=== PATIENT | female | born 1975 | race American Indian/Alaskan Native ===

== ENCOUNTER 2019-12-12 19:28 | Emergency (ER) | payer BC ==
[2019-12-12 21:30] VITALS: BP 155/78; PULSE 119
[2019-12-12 22:45] LABS: ANION GAP 12.4 mEq/L (7-13)
--- NOTE | 2019-12-13 00:02 | EDM.PDOC ---
ED HPI GENERAL MEDICAL PROBLEM - General Chief Complaint: Gastrointestinal Problem Stated Complaint: UPPER BACK AND ADOMENIAL PAIN Time Seen by Provider: 12/12/19 23:50 Source of Information: Reports: Patient History Limitations: Reports: No Limitations - History of Present Illness INITIAL COMMENTS - FREE TEXT/NARRATIVE: This 44 yo female patient reports to the ED with a 1 month history of RUQ abdominal pain. The patient reports she has been seen in the [facility] for these symptoms in the past, but report she has noticed increased stabbing pain into her right back. The patient reports she has not had a normal bowel movement in 4 days. The patient reports she does have a history of a bowel obstruction in the past with similar symptoms. The patient reports she was placed on a muscle relaxer after the clinic visit with no symptom improvement. Duration: Week(s):, Constant Location: Reports: Abdomen (RUQ) Quality: Reports: Ache, Dull Severity: Moderate Improves with: Reports: None Worsens with: Reports: None Context: Reports: Other Associated Symptoms: Reports: No Other Symptoms Right Upper Abdomen Pain Score (Numeric/FACES): 7 - Related Data Allergies Allergy/AdvReac Type Severity Reaction Status Date / Time tomato Allergy Cannot Verified 12/12/19 21:22 Remember Home Meds: Home Meds Cyclobenzaprine HCl 5 mg PO Q6H PRN 12/12/19 [History] Past Medical History - Past Health History Medical/Surgical History: Denies Medical/Surgical History Gastrointestinal History: Reports: Bowel Obstruction 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 Musculoskeletal History: Reports: Fracture Neurological History: Reports: Migraines Hematologic History: Reports: Iron Deficiency - Past Surgical History GI Surgical History: Reports: None Neurological Surgical History: Reports: None Musculoskeletal Surgical History: Reports: Other (See Below) Other Musculoskeletal Surgeries/Procedures:: PATELLA FX REPAIR Social & Family History - Family History Family Medical History: Noncontributory - Tobacco Use Smoking Status *Q: Current Every Day Smoker Years of Tobacco use: 20 Packs/Tins Daily: 0.3 - Caffeine Use Caffeine Use: Reports: Tea - Recreational Drug Use Recreational Drug Use: No ED ROS GENERAL - Review of Systems Review Of Systems: Comprehensive ROS is negative, except as noted in HPI. ED EXAM, GI/ABD - Physical Exam Exam: See Below Exam Limited By: No Limitations General Appearance: Alert, WD/WN, Moderate Distress Eyes: Bilateral: Normal Appearance, EOMI Ears: Normal External Exam, Normal Canal, Hearing Grossly Normal, Normal TMs Nose: Normal Inspection, Normal Mucosa, No Blood Throat/Mouth: Normal Inspection, Normal Lips, Normal Teeth, Normal Gums, Normal Oropharynx, Normal Voice, No Airway Compromise Head: Atraumatic, Normocephalic Neck: Normal Inspection, Supple, Non-Tender, Full Range of Motion Respiratory/Chest: No Respiratory Distress, Lungs Clear, Normal Breath Sounds, No Accessory Muscle Use, Chest Non-Tender Cardiovascular: Normal Peripheral Pulses, Regular Rate, Rhythm, No Edema, No Gallop, No JVD, No Murmur, No Rub GI/Abdominal Exam: No Organomegaly, No Distention, No Abnormal Bruit, No Mass, Pelvis Stable, Tender (RUQ) (Female) Exam: Deferred Rectal (Female) Exam: Deferred Back Exam: Normal Inspection, Full Range of Motion, NT Extremities: Normal Inspection, Normal Range of Motion, Non-Tender, Normal Capillary Refill, No Pedal Edema Neurological: Alert, Oriented, CN II-XII Intact, Normal Cognition, Normal Gait, Normal Reflexes, No Motor/Sensory Deficits Psychiatric: Normal Affect, Normal Mood Skin Exam: Warm, Dry, Intact, Normal Color, No Rash Lymphatic: No Adenopathy Course - Vital Signs Last Recorded V/S: Last Vital Signs Temp 36.6 C 12/12/19 21:23 Pulse 119 H 12/12/19 21:23 Resp 16 12/12/19 21:23 BP 155/78 H 12/12/19 21:23 Pulse Ox 98 12/12/19 21:23 - Orders/Labs/Meds Orders: Active Orders 24 hr Category Date Time Status UA RFX ALLEN AND CULT IF INDIC [URIN] Stat Lab 12/12/19 21:35 Ordered Urine HCG [HCG QUALITATIVE,URINE] [URCHEM] Stat Lab 12/12/19 21:35 Ordered Labs: Laboratory Tests 12/12/19 12/12/19 12/12/19 Range/Units 21:55 21:55 21:55 WBC 10.5 H (5.0-10.0) 10^3/uL RBC 3.90 L (4.2-5.4) 10^6/uL Hgb 12.1 (12.0-16.0) g/dL Hct 35.7 L (37.0-47.0) % MCV 91.5 (80-100) fL MCH 31.0 (27.0-34.0) pg MCHC 33.9 (33.0-35.0) g/dL Plt Count 240 (150-450) 10^3/uL Neut % (Auto) 61.6 (42.2-75.2) % Lymph % (Auto) 28.0 (20.5-50.1) % Keith % (Auto) 7.5 (2-8) % Eos % (Auto) 2.1 (1.0-3.0) % Baso % (Auto) 0.8 (0.0-1.0) % Sodium 132 L (136-145) mmol/L Potassium 4.4 (3.5-5.1) mmol/L Chloride 96 L (98-107) mmol/L Carbon Dioxide 28 (21-32) mmol/L Anion Gap 12.4 (7-13) mEq/L BUN 17 (7-18) mg/dL Creatinine 1.45 H (0.55-1.02) mg/dL Est Cr Clr Drug Dosing 36.58 mL/min Estimated GFR (MDRD) 39 BUN/Creatinine Ratio 11.7 (No establ ref range) Glucose 453 H* (74-99) mg/dL Calcium 8.5 (8.5-10.1) mg/dL Total Bilirubin 0.4 (0.2-1.0) mg/dL AST 15 (15-37) U/L ALT 19 (14-59) U/L Alkaline Phosphatase 158 H (46-116) U/L Total Protein 7.6 (6.4-8.2) g/dL Albumin 3.1 L (3.4-5.0) g/dL Globulin 4.5 Albumin/Globulin Ratio 0.69 Amylase 18 L (25-115) U/L Lipase 144 (73-393) U/L Ketones Negative Meds: Medications Discontinued Medications Generic Name Dose Route Start Last Admin Trade Name Freq PRN Reason Stop Dose Admin Sodium Chloride 1,000 mls @ 999 mls/hr 12/13/19 00:43 12/13/19 01:17 Normal Saline IV 12/13/19 01:43 999 mls/hr .BOLUS ONE Administration Iopamidol 100 ml 12/13/19 00:37 12/13/19 00:42 Isovue-300 (61%) IVPUSH 12/13/19 00:38 100 ml ONETIME ONE Administration Departure - Departure Time of Disposition: :27 Disposition: Home, Self-Care 01 Condition: Fair Clinical Impression: Cholelithiasis Qualifiers: Cholelithiasis location: gallbladder Cholecystitis presence: without cholecystitis Biliary obstruction: without biliary obstruction Qualified Code(s): K80.20 - Calculus of gallbladder without cholecystitis without obstruction - Discharge Information *PRESCRIPTION DRUG MONITORING PROGRAM REVIEWED*: Not Applicable *COPY OF PRESCRIPTION DRUG MONITORING REPORT IN PATIENT PARAM: Not Applicable Instructions: Cholelithiasis, [place], Gallbladder Eating Plan Forms: ED Department Discharge Care Plan Goals: The patient was advised of the examination, lab and CT results during the visit. The patient was encouraged to stick to a low fat diet. The patient should follow-up with her primary care facility for further evaluation (surgical consult) and treatment. If the patient has any additional symptoms or concerns, the patient should either return to the emergency department or visit her primary care facility. Sepsis Event Note (ED) - Evaluation Sepsis Screening Result: No Definite Risk - Focused Exam Vital Signs: Vital Signs Temp Pulse Resp BP Pulse Ox 12/12/19 21:23 36.6 C 119 H 16 155/78 H 98 - My Orders Last 24 Hours: My Active Orders 12/12/19 21:35 UA RFX ALLEN AND CULT IF INDIC [URIN] Stat Urine HCG [HCG QUALITATIVE,URINE] [URCHEM] Stat - Assessment/Plan Last 24 Hours: My Active Orders 12/12/19 21:35 UA RFX ALLEN AND CULT IF INDIC [URIN] Stat Urine HCG [HCG QUALITATIVE,URINE] [URCHEM] Stat
[2019-12-13] MEDS ORDERED: Iopamidol 612 MG/ML 100 ML Bottle IVPUSH ONE (00:37)
[2019-12-13] MEDS ORDERED: Sodium Chloride 0.9% 1,000 ML IV ONE (00:43)
--- NOTE | 2019-12-13 01:34 | CT ---
PROCEDURE INFORMATION: Exam: CT Abdomen And Pelvis With Contrast Exam date and time: 12/13/2019 12:53 AM Age: 44 years old Clinical indication: Other: Right sided pain; Additional info: Ruq abdominal pain TECHNIQUE: Imaging protocol: Computed tomography of the abdomen and pelvis with intravenous contrast. Radiation optimization: All CT scans at this facility use at least one of these dose optimization techniques: automated exposure control; mA and/or kV adjustment per patient size (includes targeted exams where dose is matched to clinical indication); or iterative reconstruction. Contrast material: [id number]; Contrast volume: 70 ml; Contrast route: INTRAVENOUS (IV); COMPARISON: CT ABDOMEN/PELVIS 10/30/2012 10:23 PM FINDINGS: Liver: Normal. No mass. Gallbladder and bile ducts: Cholelithiasis but no definite gallbladder wall thickening. No evidence for choledocholithiasis. Pancreas: Normal. No ductal dilation. Spleen: Normal. No splenomegaly. Adrenals: Normal. No mass. Kidneys and ureters: Normal. No hydronephrosis. Stomach and bowel: Unremarkable. No obstruction. No mucosal thickening. Appendix: Normal appendix right lower quadrant Intraperitoneal space: See "Reproductive" finding. Vasculature: Unremarkable. No abdominal aortic aneurysm. Lymph nodes: Unremarkable. No enlarged lymph nodes. Bladder: Mild urinary bladder wall thickening suggestive of cystitis. Please correlate with urinalysis Reproductive: Left ovarian cyst measuring 2.1 cm consistent with a functional cyst. No free fluid in the cul-de-sac Bones/joints: Unremarkable. No acute fracture. Soft tissues: Unremarkable. IMPRESSION: 1. Cholelithiasis but no definite gallbladder wall thickening. No evidence for choledocholithiasis. 2. Normal appendix right lower quadrant 3. Mild urinary bladder wall thickening suggestive of cystitis. Please correlate with urinalysis 4. Left ovarian cyst measuring 2.1 cm consistent with a functional cyst. No free fluid in the cul-de-sac
== END 2019-12-13 02:19 | disposition home or self-care (01) ==
LOC: DL.ED 19:28
DX: K80.20 Calculus of gallbladder without cholecystitis without obstruction (principal); F17.210 Nicotine dependence, cigarettes, uncomplicated; Z91.018 Allergy to other foods
CPT/HCPCS: 36415; 74177; 80053; 82009; 82150; 83690; 85025; 99284; J7030; Q9967

== ENCOUNTER 2020-12-31 21:47 | Emergency (ER) | payer BC ==
[2020-12-31] MEDS ORDERED: Lidocaine 2% Viscous Solution 15 ML Cup ONE (21:55)
[2020-12-31] MEDS ORDERED: cefTRIAXone 1 GM, Lidocaine 1% 2.1 ML IM ONE ×2 (21:55)
--- NOTE | 2020-12-31 21:59 | EDM.PDOC ---
ED HPI GENERAL MEDICAL PROBLEM - General Chief Complaint: ENT Problem Stated Complaint: EAR ACHE RIGHT EAR. Time Seen by Provider: 12/31/20 21:57 Source of Information: Reports: Patient History Limitations: Reports: No Limitations - History of Present Illness INITIAL COMMENTS - FREE TEXT/NARRATIVE: Patient is a unfortunate 45-year-old female who presents emerged from today with right ear pain. Patient reports symptoms started yesterday and pressure worsened today so she came concerned presented emerged part for further evaluation. Patient reports she has had no fever no chills no nausea no vomiting no chest pain or shortness of breath no known coronavirus exposure no recent travel she has had no recent swimming - Related Data Allergies Allergy/AdvReac Type Severity Reaction Status Date / Time tomato Allergy Cannot Verified 12/12/19 21:22 Remember Home Meds: Home Meds Cyclobenzaprine HCl 5 mg PO Q6H PRN 12/12/19 [History] Cefdinir 300 mg PO BID #14 capsule 12/31/20 [Rx] Past Medical History - Past Health History Medical/Surgical History: Denies Medical/Surgical History Gastrointestinal History: Reports: Bowel Obstruction 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 Musculoskeletal History: Reports: Fracture Neurological History: Reports: Migraines Hematologic History: Reports: Iron Deficiency - Past Surgical History GI Surgical History: Reports: None Neurological Surgical History: Reports: None Musculoskeletal Surgical History: Reports: Other (See Below) Other Musculoskeletal Surgeries/Procedures:: PATELLA FX REPAIR Social & Family History - Family History Family Medical History: No Pertinent Family History - Caffeine Use Caffeine Use: Reports: Tea ED ROS ENT - Review of Systems Review Of Systems: See Below Constitutional: Denies: Fever, Chills HEENT: Reports: Ear Pain ED EXAM, ENT - Physical Exam Exam: See Below Exam Limited By: No Limitations General Appearance: Alert, WD/WN, Mild Distress Ears: TM Bulging (Right), TM Erythema (Right) Nose: Normal Inspection, Normal Mucousa, No Blood Respiratory/Chest: No Respiratory Distress, Lungs Clear, Normal Breath Sounds, No Accessory Muscle Use, Chest Non-Tender Cardiovascular: Normal Peripheral Pulses, Regular Rate, Rhythm, No Edema, No Gallop, No JVD, No Murmur, No Rub GI/Abdominal: Normal Bowel Sounds, Soft, Non-Tender, No Organomegaly, No Di stention, No Abnormal Bruit, No Mass Back: Normal Inspection, Full Range of Motion Extremities: Normal Inspection, Normal Range of Motion, Non-Tender, No Pedal Edema, Normal Capillary Refill Neurological: Alert, Oriented, CN II-XII Intact, Normal Cognition, Normal Gait, Normal Reflexes, No Motor/Sensory Deficits Skin: Warm, Dry, Intact Course - Orders/Labs/Meds Orders: Active Orders 24 hr Category Date Time Status Lidocaine 2% [Xylocaine 2% Viscous] Med 12/31/20 21:55 Once 5 ml .XX ONETIME ONE cefTRIAXone 1 GM,Lidocaine 1% 2.1 ML Med 12/31/20 21:55 Ordered cefTRIAXone [Rocephin] 1 gm Lidocaine 1% [Xylocaine-MPF 1%] 2.1 ml IM ONETIME Departure - Departure Time of Disposition: 21:58 Disposition: Home, Self-Care 01 Condition: Good Clinical Impression: Otitis media Qualifiers: Otitis media type: suppurative Chronicity: acute Laterality: right Recurrence: not specified as recurrent Spontaneous tympanic membrane rupture: without spontaneous rupture Qualified Code(s): H66.001 - Acute suppurative otitis media without spontaneous rupture of ear drum, right ear - Discharge Information *PRESCRIPTION DRUG MONITORING PROGRAM REVIEWED*: No *COPY OF PRESCRIPTION DRUG MONITORING REPORT IN PATIENT PARAM: No Prescriptions: Cefdinir 300 mg PO BID #14 capsule Instructions: Otitis Media, Adult, [id number] Forms: ED Department Discharge Additional Instructions: Home, rest, adequate fluids, Tylenol or Motrin for pain, return as needed for any worsening condition - My Orders Last 24 Hours: My Active Orders 12/31/20 21:55 Lidocaine 2% [Xylocaine 2% Viscous] 5 ml .XX ONETIME ONE cefTRIAXone 1 GM,Lidocaine 1% 2.1 ML cefTRIAXone [Rocephin] 1 gm Lidocaine 1% [Xylocaine-MPF 1%] 2.1 ml IM ONETIME - Assessment/Plan Last 24 Hours: My Active Orders 12/31/20 21:55 Lidocaine 2% [Xylocaine 2% Viscous] 5 ml .XX ONETIME ONE cefTRIAXone 1 GM,Lidocaine 1% 2.1 ML cefTRIAXone [Rocephin] 1 gm Lidocaine 1% [Xylocaine-MPF 1%] 2.1 ml IM ONETIME
[2020-12-31 22:01] VITALS: BP 195/84; PULSE 105
== END 2020-12-31 22:30 | disposition home or self-care (01) ==
LOC: DL.ED 21:47
DX: H66.001 Acute suppurative otitis media without spontaneous rupture of ear drum, right ear (principal); Z91.018 Allergy to other foods
CPT/HCPCS: 96372; 99282; A9270; J0696

== ENCOUNTER 2021-10-03 23:54 | Emergency (ER) | payer BC ==
[2021-10-04] MEDS ORDERED: Amoxicillin/Clavulanate K 875-125 MG Tab PO ONE (00:23)
[2021-10-04 00:39] VITALS: BP 178/85; PULSE 88
== END 2021-10-04 00:36 | disposition home or self-care (01) ==
LOC: DL.ED 23:54
DX: H66.002 Acute suppurative otitis media without spontaneous rupture of ear drum, left ear (principal); I10 Essential (primary) hypertension; Z79.899 Other long term (current) drug therapy; Z91.018 Allergy to other foods
CPT/HCPCS: 99282; 99283; A9270

== ENCOUNTER 2023-03-31 21:26 | Emergency (ER) | payer BC ==
[2023-03-31 23:58] VITALS: BP 190/85; PULSE 81
[2023-04-01 01:14] LABS: BASOPHILS PERCENT AUTO 0.2 % (0.0-1.0); EOSINOPHILS PERCENT AUTO 2.8 % (1.0-3.0); HEMATOCRIT 30.6 % (37.0-47.0); HEMOGLOBIN 9.8 g/dL (12.0-16.0); LYMPHOCYTES PERCENT AUTO 32.6 % (20.5-50.1); MEAN CORPUSCULAR HEMOGLOBIN 29.6 pg (27.0-34.0); MEAN CORPUSCULAR VOLUME 92.4 fL (80-100); MONOCYTES PERCENT AUTO 7.5 % (2-8); NEUTROPHILS PERCENT AUTO 56.9 % (42.2-75.2); PLATELET COUNT,PLT 251 10^3/uL (150-450); RED BLOOD CELL COUNT 3.31 10^6/uL (4.2-5.4); WHITE BLOOD CELL COUNT,WBC 12.3 10^3/uL (5.0-10.0)
[2023-04-01 01:34] LABS: ALBUMIN 2.7 g/dL (3.4-5.0); BILIRUBIN TOTAL 0.2 mg/dL (0.2-1.0); BUN/CREATININE RATIO 20.5 (No establ ref range); CALCIUM 8.6 mg/dL (8.5-10.1); CREATININE 1.66 mg/dL (0.55-1.02); EST CRCL DRUG DOSING (CG) 30.93 mL/min; PROTEIN TOTAL,TP 6.7 g/dL (6.4-8.2)
[2023-04-01 01:35] LABS: A/G RATIO 0.68
== END 2023-04-01 02:24 | disposition home or self-care (01) ==
LOC: DL.ED 21:26
DX: G57.00 Lesion of sciatic nerve, unspecified lower limb (principal); I10 Essential (primary) hypertension; F17.210 Nicotine dependence, cigarettes, uncomplicated; Z79.899 Other long term (current) drug therapy; Z91.018 Allergy to other foods
CPT/HCPCS: 36415; 80053; 85025; 99284

== ENCOUNTER 2024-01-20 06:30 | Day surgery (SDC) | payer BC ==
[~2024-01-20 06:30] MED LIST: Midazolam 1 MG/ML 2 ML SDV ONE; fentaNYL 100 MCG/2 ML SDV ONE
[2024-01-20] MEDS ORDERED: fentaNYL 100 MCG/2 ML SDV IV ONE (06:31)
[2024-01-20] MEDS ORDERED: Midazolam 1 MG/ML 2 ML SDV IV ONE (06:31)
[2024-01-20] MEDS: Dextrose 5%-0.45% NaCl 1,000 ML IV SCH (06:52)
[2024-01-20] MEDS: fentaNYL 100 MCG/2 ML SDV IV ONE ×2 (07:21)
[2024-01-20] MEDS: Midazolam 1 MG/ML 2 ML SDV IV ONE ×2 (07:22→07:23)
[2024-01-20 09:01] VITALS: BP 142/64; PULSE 74
== END 2024-01-20 08:56 | disposition home or self-care (01) ==
LOC: DL.ENDO 06:30
PROVIDERS: ATTEND Internal Medicine Gastroenterology
DX: K29.50 Unspecified chronic gastritis without bleeding (principal); K21.9 Gastro-esophageal reflux disease without esophagitis; I12.9 Hypertensive chronic kidney disease with stage 1 through stage 4 chronic kidney disease, or unspecified chronic kidney disease; E11.22 Type 2 diabetes mellitus with diabetic chronic kidney disease; N18.9 Chronic kidney disease, unspecified
CPT/HCPCS: 87077; J2250; J3010; J7799

== ENCOUNTER 2024-01-27 06:53 | Day surgery (SDC) | payer BC ==
[2024-01-27] MEDS: Dextrose 5%-0.45% NaCl 1,000 ML IV SCH (07:16)
[2024-01-27] MEDS ORDERED: Midazolam 1 MG/ML 2 ML SDV ONE (07:27)
[2024-01-27] MEDS ORDERED: fentaNYL 100 MCG/2 ML SDV ONE (07:27)
[2024-01-27] MEDS: fentaNYL 100 MCG/2 ML SDV IV ONE ×2 (08:13)
[2024-01-27] MEDS: Midazolam 1 MG/ML 2 ML SDV IV ONE ×5 (08:14→08:25)
[2024-01-27 09:45] VITALS: BP 158/79; PULSE 82
== END 2024-01-27 09:40 | disposition home or self-care (01) ==
LOC: DL.ENDO 06:53
PROVIDERS: ATTEND Internal Medicine Gastroenterology
DX: Z12.11 Encounter for screening for malignant neoplasm of colon (principal); E11.22 Type 2 diabetes mellitus with diabetic chronic kidney disease; I12.9 Hypertensive chronic kidney disease with stage 1 through stage 4 chronic kidney disease, or unspecified chronic kidney disease; N18.9 Chronic kidney disease, unspecified; D63.1 Anemia in chronic kidney disease
CPT/HCPCS: J2250; J3010; J7799

== ENCOUNTER 2024-02-27 11:09 | Emergency (ER) | payer BC ==
[2024-02-27 10:29] LABS: BASOPHILS PERCENT AUTO 0.6 % (0.0-1.0); HEMATOCRIT 32.1 % (37.0-47.0); HEMOGLOBIN 10.7 g/dL (12.0-16.0); LYMPHOCYTES PERCENT AUTO 23.6 % (20.5-50.1); MEAN CORPUSCULAR HEMOGLOBIN 29.3 pg (27.0-34.0); MEAN CORPUSCULAR HGB CONC 33.3 g/dL (33.0-35.0); MEAN CORPUSCULAR VOLUME 87.9 fL (80-100); MONOCYTES PERCENT AUTO 5.5 % (2-8); NEUTROPHILS PERCENT AUTO 68.3 % (42.2-75.2); PLATELET COUNT,PLT 284 10^3/uL (150-450); RED BLOOD CELL COUNT 3.65 10^6/uL (4.2-5.4); WHITE BLOOD CELL COUNT,WBC 11.8 10^3/uL (5.0-10.0)
[2024-02-27] MEDS: hydrALAZINE 20 MG/ML SDV IVPUSH ONE (10:34)
[2024-02-27] MEDS: Sodium Chloride 0.9% 10 ML Syringe FLUSH PRN (10:35)
[2024-02-27 10:42] LABS: APPEARANCE,URINE SLIGHTLY CLOUDY (CLEAR); BILIRUBIN,URINE NEGATIVE (NEGATIVE); COLOR,URINE YELLOW (YELLOW); GLUCOSE,URINE 500 (NEGATIVE); KETONES,URINE NEGATIVE (NEGATIVE); LEUKOCYTE ESTERASE,URINE TRACE (NEGATIVE); NITRITE,URINE NEGATIVE (NEGATIVE); OCCULT BLOOD,URINE TRACE-INTACT (NEGATIVE); PROTEIN,URINE >=300 (NEGATIVE); UROBILINOGEN,URINE 0.2 mg/dL (0.2-1.0)
[2024-02-27 10:46] LABS: INR 0.9 (0.9-1.2); PROTHROMBIN TIME 9.2 SEC (9.0-12.0)
[2024-02-27 10:53] LABS: ALBUMIN 2.5 g/dL (3.4-5.0); ANION GAP 12.6 mEq/L (7-13); BILIRUBIN TOTAL 0.3 mg/dL (0.2-1.0); BUN/CREATININE RATIO 12.6 (No establ ref range); CALCIUM 8.9 mg/dL (8.5-10.1); CREATININE 2.23 mg/dL (0.55-1.02); EST CRCL DRUG DOSING (CG) 23.87 mL/min; MAGNESIUM 1.3 mg/dL (1.8-2.4); POTASSIUM,K 4.6 mmol/L (3.5-5.1); PROTEIN TOTAL,TP 6.9 g/dL (6.4-8.2)
[2024-02-27 10:54] LABS: A/G RATIO 0.57
[2024-02-27 10:55] LABS: BACTERIA,URINE MANY /HPF (0-FEW/HPF); EPITHELIAL CELLS,URINE MODERATE /HPF (NOT SEEN); WBC,URINE PACKED /HPF (0-5/HPF)
[2024-02-27] MEDS: amLODIPine 5 MG Tab PO ONE (11:48)
[2024-02-27 12:35] VITALS: BP 164/82; PULSE 80
== END 2024-02-27 12:55 | disposition home or self-care (01) ==
LOC: DL.ED 11:09
DX: I10 Essential (primary) hypertension (principal); R74.8 Abnormal levels of other serum enzymes; E78.00 Pure hypercholesterolemia, unspecified; E11.9 Type 2 diabetes mellitus without complications; Z79.899 Other long term (current) drug therapy; Z79.84 Long term (current) use of oral hypoglycemic drugs; Z91.018 Allergy to other foods
CPT/HCPCS: 36415; 74176; 80053; 81001; 83735; 84484; 85025; 85610; 87086; 87088; 87186; 93005; 96374; 99284; A9270; J0360; J3490

== ENCOUNTER 2025-04-22 13:10 | Emergency (ER) | payer BC, MEDICAID ==
[2025-04-22] MEDS: Bacitracin Oint 1 GM U/D Packet TOP ONE (13:34)
[2025-04-22 13:37] VITALS: BP 147/72; PULSE 80
== END 2025-04-22 13:41 | disposition home or self-care (01) ==
LOC: DL.ED 13:10
DX: L98.8 Other specified disorders of the skin and subcutaneous tissue (principal); E78.00 Pure hypercholesterolemia, unspecified; I10 Essential (primary) hypertension; E11.9 Type 2 diabetes mellitus without complications; Z99.2 Dependence on renal dialysis; Z91.018 Allergy to other foods; Z79.899 Other long term (current) drug therapy; Z79.84 Long term (current) use of oral hypoglycemic drugs
CPT/HCPCS: 99283; A9270